=== PATIENT | male | born 1975 | race Caucasian/White ===

== ENCOUNTER 2017-08-07 15:21 | Emergency (ER) | payer SELFPAY ==
[~2017-08-07] VITALS: Ht 175.3 cm; Wt 79.4 kg
--- NOTE | 2017-08-07 15:33 | NUR ---
RECIEVED PATIENT TO ED BED 13, PT WAS BB RA FOR S/P SEIZURE, PT SAID HE BIT HIS TONGUE. PT IS NOW A/OX3 W/ SOME CONFUSION. PT SAID HE HAS A HISTORY OF SEIZURE BUT HAS BEEN NON COMPLIANT W/ HIS MED X 1 MONTH. PT DOES NOT REMEBER HIS MEDICATION. SEIZURE PRECAUTION APPLIED. PLACED ON CONT CARDIAC AND POX MONITOR. PENDING ER MD JONES
[2017-08-07 16:22] LABS: BASOPHILS # (AUTO) 0.1 /CMM (0.0-0.2); EOSINOPHILS % (AUTO) 1.9 % (0.0-6.0); HEMATOCRIT 43 % (39-51); HEMOGLOBIN 14.6 g/dL (13.5-17.5); LYMPHOCYTES # (AUTO) 1.4 /CMM (0.8-4.8); LYMPHOCYTES % (AUTO) 21.3 % (20.0-44.0); MEAN CORPUSCULAR HGB CONC 34 g/dl (31.0-36.0); MEAN CORPUSCULAR VOLUME 85 fL (80-96); MONOCYTES # (AUTO) 0.3 /CMM (0.1-1.30); NEUTROPHILS # (AUTO) 4.5 /CMM (1.8-8.9); NEUTROPHILS % (AUTO) 70.8 % (43.0-81.0); PLATELET COUNT (AUTO) 248 /CMM (150-450); RED BLOOD CELL COUNT(AUTO) 5.07 MIL/uL (4.5-6.0); WHITE BLOOD COUNT (AUTO) 6.4 K/uL (4.3-11.0)
[2017-08-07] MEDS ORDERED: LEVETIRACETAM (500MG) 1,000 MG in IV NS 0.9% 100 ML IV SCH (16:30)
[2017-08-07 16:32] LABS: CALCIUM, SERUM 9.5 mg/dL (8.5-10.1); CREATININE 1.4 mg/dL (0.6-1.3); POTASSIUM 4.1 mmol/L (3.5-5.1)
--- NOTE | 2017-08-07 17:57 | NUR ---
IV removed. Catheter intact and site benign. Pressure and 4x4 applied to site. No bleeding noted.Patient discharged to home in stable condition. Written and verbal after care instructions given. Patient verbalizes understanding of instruction.
[2017-08-07 17:58] VITALS: BP 105/69
== END 2017-08-07 17:58 | disposition home or self-care (01) ==
LOC: EDBD 15:25 → ER 15:25
DX: G40.802 Other epilepsy, not intractable, without status epilepticus (principal)
CPT/HCPCS: 36415; 80048; 85025; 96365; 99284; A4606; J1953; J7030; Z7610